=== PATIENT | female | born 1955 | race Caucasian/White ===

== ENCOUNTER → 2017-03-19 | Outpatient (CLI) | payer OTHER ==
[~2017-03-19] MED LIST: LO-DOSE ASPIRIN81 M2 PO; ONE DAILY1 EAC3 PO; OXYCODONE HCL10 MG PO; OXYCONTIN15 MG PO; [UNRECOGNIZED DRUG - OTHER] PO
== END | disposition home or self-care (01) ==
LOC: CDC 14:42
DX: R00.1 Bradycardia, unspecified (principal); M75.41 Impingement syndrome of right shoulder; M19.011 Primary osteoarthritis, right shoulder; G56.01 Carpal tunnel syndrome, right upper limb
CPT/HCPCS: 93000

== ENCOUNTER 2017-05-23 10:56 | Day surgery (SDC) | payer OTHER ==
[~2017-05-23] VITALS: Ht 177.8 cm; Wt 79.8 kg
[~2017-05-23 10:56] MED LIST changes: +ATARAX,VISTARIL25 MG PO; +UNIRETIC PO
[2017-05-23 11:18] VITALS: BP 120/66
[2017-05-23 17:55] VITALS: BP 121/60
[2017-05-23 18:20] VITALS: BP 125/60
== END 2017-05-23 18:20 | disposition home or self-care (01) ==
LOC: SDC 10:56
DX: M19.011 Primary osteoarthritis, right shoulder (principal); M75.41 Impingement syndrome of right shoulder; M75.51 Bursitis of right shoulder; G56.01 Carpal tunnel syndrome, right upper limb; M25.811 Other specified joint disorders, right shoulder; I10 Essential (primary) hypertension; Z88.0 Allergy status to penicillin; Z79.82 Long term (current) use of aspirin
CPT/HCPCS: J0171; J1100; J1170; J2250; J2405; J2795; S0020